=== PATIENT | female | born 1950 | race Two or more races ===

== ENCOUNTER 2017-12-23 09:49 | Outpatient (CLI) | payer OTHER ==
[~2017-12-23 09:49] MED LIST: ANAPROX275 MG PO
== END 2017-12-23 14:35 | disposition home or self-care (01) ==
LOC: MAMO-SONO 09:49
DX: Z12.31 Encounter for screening mammogram for malignant neoplasm of breast (principal); Z87.898 Personal history of other specified conditions

== ENCOUNTER → 2019-03-25 | Outpatient (CLI) | payer OTHER | END | disposition home or self-care (01) | LOC: MAMO-SONO 08:15 | DX: Z12.31 Encounter for screening mammogram for malignant neoplasm of breast (principal); Z87.898 Personal history of other specified conditions; Z80.8 Family history of malignant neoplasm of other organs or systems; Z08 Encounter for follow-up examination after completed treatment for malignant neoplasm ==

== ENCOUNTER → 2020-03-27 07:00 | Outpatient (CLI) | payer OTHER | END | disposition home or self-care (01) | LOC: PPH VACUNA 07:00 | PROVIDERS: ATTEND Emergency Medicine Pediatric Emergency Medicine | DX: Z23 Encounter for immunization (principal) ==

== ENCOUNTER → 2020-04-17 | Outpatient (CLI) | payer OTHER | END | disposition home or self-care (01) | LOC: PPH VACUNA 15:00 | PROVIDERS: ATTEND Emergency Medicine Pediatric Emergency Medicine | DX: Z23 Encounter for immunization (principal) ==

== ENCOUNTER 2020-08-09 08:28 | Outpatient (CLI) | payer OTHER | END 2020-08-09 08:42 | disposition home or self-care (01) | LOC: MAMO-SONO 08:28 | PROVIDERS: ATTEND Internal Medicine Cardiovascular Disease | DX: Z12.31 Encounter for screening mammogram for malignant neoplasm of breast (principal); Z87.898 Personal history of other specified conditions; Z85.3 Personal history of malignant neoplasm of breast ==

== ENCOUNTER → 2020-08-18 | Outpatient (CLI) | payer OTHER | END | disposition home or self-care (01) | LOC: SONOGRAMA 09:44 | PROVIDERS: ATTEND Surgery | DX: D24.2 Benign neoplasm of left breast (principal); N60.11 Diffuse cystic mastopathy of right breast; N60.12 Diffuse cystic mastopathy of left breast; R92.0 Mammographic microcalcification found on diagnostic imaging of breast ==

== ENCOUNTER 2020-12-08 08:00 | Outpatient (CLI) | payer OTHER | END 2020-12-08 08:30 | disposition home or self-care (01) | LOC: PPH VACUNA 08:00 | PROVIDERS: ATTEND Emergency Medicine Pediatric Emergency Medicine | DX: Z23 Encounter for immunization (principal) ==

== ENCOUNTER 2022-04-24 08:10 | Outpatient (CLI) | payer OTHER | END 2022-04-24 08:19 | disposition home or self-care (01) | LOC: SONOGRAMA 08:10 | PROVIDERS: ATTEND Pediatrics | DX: R10.2 Pelvic and perineal pain (principal); N95.0 Postmenopausal bleeding ==

== ENCOUNTER 2022-05-30 07:11 | Outpatient (CLI) | payer OTHER ==
[2022-05-31] MEDS ORDERED: NORVASC5 MG PO (11:37)
[2022-05-31] MEDS ORDERED: IRBESARTAN-HCT1 EAC1 PO (11:37)
[2022-05-31] MEDS ORDERED: PROPRANOLOL HC120 MG PO (11:37)
== END 2022-05-30 08:00 | disposition home or self-care (01) ==
LOC: RAD 07:11
PROVIDERS: ATTEND Obstetrics & Gynecology Gynecology
DX: I10 Essential (primary) hypertension (principal)

== ENCOUNTER → 2022-05-30 14:06 | Outpatient (CLI) | payer OTHER | END | disposition home or self-care (01) | LOC: LAB 14:06 | PROVIDERS: ATTEND Obstetrics & Gynecology Gynecology | DX: D64.9 Anemia, unspecified (principal); N39.0 Urinary tract infection, site not specified; I10 Essential (primary) hypertension; D68.9 Coagulation defect, unspecified ==

== ENCOUNTER 2022-06-03 05:55 | Day surgery (SDC) | payer OTHER ==
[~2022-06-03 05:55] MED LIST changes: +IRBESARTAN-HCT1 EAC1 PO; +NORVASC5 MG PO; +PROPRANOLOL HC120 MG PO
[2022-06-03] MEDS ORDERED: IBU600 MG PO (08:28)
== END 2022-06-03 12:55 | disposition home or self-care (01) ==
LOC: CIR.AMB 05:55
PROVIDERS: ATTEND Obstetrics & Gynecology Gynecology
DX: N92.0 Excessive and frequent menstruation with regular cycle (principal); N84.0 Polyp of corpus uteri; Z88.0 Allergy status to penicillin; Z91.013 Allergy to seafood; Z88.2 Allergy status to sulfonamides; I10 Essential (primary) hypertension

== ENCOUNTER 2022-08-14 10:08 | Outpatient (CLI) | payer OTHER ==
[~2022-08-14 10:08] MED LIST changes: +IBU600 MG PO
== END 2022-08-14 10:27 | disposition home or self-care (01) ==
LOC: MAMO-SONO 10:08
PROVIDERS: ATTEND Internal Medicine
DX: Z12.31 Encounter for screening mammogram for malignant neoplasm of breast (principal)

== ENCOUNTER 2023-05-16 07:31 | Outpatient (CLI) | payer OTHER | END 2023-05-16 07:32 | disposition home or self-care (01) | LOC: NUCLEAR 07:31 | PROVIDERS: ATTEND Internal Medicine | DX: I20.89 Other forms of angina pectoris (principal); I11.9 Hypertensive heart disease without heart failure | CPT/HCPCS: 78452; 93017; A9500; J0153 ==

== ENCOUNTER 2024-01-07 07:38 | Outpatient (CLI) | payer OTHER | END 2024-01-07 09:07 | disposition home or self-care (01) | LOC: MAMO-SONO 07:38 | PROVIDERS: ATTEND Internal Medicine | DX: I11.9 Hypertensive heart disease without heart failure (principal); E78.2 Mixed hyperlipidemia; I34.1 Nonrheumatic mitral (valve) prolapse; Z12.31 Encounter for screening mammogram for malignant neoplasm of breast ==

== ENCOUNTER → 2024-04-20 07:46 | Outpatient (CLI) | payer OTHER | END | disposition home or self-care (01) | LOC: NUCLEAR 07:46 | PROVIDERS: ATTEND Internal Medicine | DX: I87.2 Venous insufficiency (chronic) (peripheral) (principal); I73.9 Peripheral vascular disease, unspecified ==

== ENCOUNTER 2024-04-21 07:53 | Outpatient (CLI) | payer OTHER | END 2024-04-21 07:54 | disposition home or self-care (01) | LOC: NUCLEAR 07:53 | PROVIDERS: ATTEND Internal Medicine | DX: I87.2 Venous insufficiency (chronic) (peripheral) (principal); I73.9 Peripheral vascular disease, unspecified ==